=== PATIENT | male | born 1945 | race Caucasian/White ===

== ENCOUNTER 2017-08-16 05:22 | Emergency (ER) | payer MEDICARE, BC ==
[2017-08-16] MEDS ORDERED: Dexamethasone 10 MG/ML VIAL ONE (06:32)
[2017-08-16] MEDS ORDERED: Ketorolac Tromethamine 60 MG/2 ML VIAL ONE (06:32)
[2017-08-16] MEDS ORDERED: Ondansetron ODT 8 MG TAB ONE (06:39)
== END 2017-08-16 06:53 | disposition home or self-care (01) ==
LOC: ERS 05:22
DX: J32.9 Chronic sinusitis, unspecified (principal); K08.89 Other specified disorders of teeth and supporting structures; K21.9 Gastro-esophageal reflux disease without esophagitis; E78.5 Hyperlipidemia, unspecified; Z79.899 Other long term (current) drug therapy
CPT/HCPCS: 96372; J1100; J1885